=== PATIENT | female | born 1995 | race Caucasian/White ===

== ENCOUNTER → 2018-11-13 | Emergency (ER) | payer SELFPAY ==
[~2018-11-13] VITALS: Ht 170.2 cm; Wt 59.0 kg
[~2018-11-13] MED LIST: IOHEXOL 300 MG/ML 100ML BOTTLE IJ ONE
[2018-11-13 21:57] VITALS: BP 106/63
[2018-11-13 22:41] LABS: Basophils # (auto) 0.1 uL; Basophils % (auto) 1.5 % (0.0-2.0); Eosinophils # (auto) 0.1 uL; Eosinophils % (auto) 1.5 % (0.0-7.0); Hematocrit 41.4 % (36.0-46.0); Hemoglobin 13.9 g/dL (12.2-16.2); Lymphocytes # (auto) 1.9 uL; Lymphocytes % (auto) 29.7 % (10.0-50.0); Mean Corpuscular Hemoglobin 30.6 pg (28.0-32.0); Mean Corpuscular Hgb Conc. 33.6 g/dL (32.0-36.0); Mean Corpuscular Volume 91.2 fL (80.0-100.0); Monocytes # (auto) 0.5 uL; Monocytes % (auto) 7.4 % (0.0-12.0); Neutrophils # (auto) 3.9 uL; Neutrophils % (auto) 59.9 % (37.0-80.0); Nucleated Red Blood Cells % 0.1 %; Platelet Count (auto) 230 10^3/uL (140-450); Red Blood Cells 4.54 10^6/uL (4.0-5.20); Red Cell Distribution Width 13.2 % (11.8-14.3); White Blood Cell 6.4 10^3/uL (4.4-10.8)
[2018-11-13 22:59] LABS: Albumin 4.1 g/dL (3.4-5.0); BUN/Creatinine Ratio 12.8; Potassium 4.2 mmol/L (3.5-5.1)
[2018-11-13 23:02] LABS: Bilirubin, Total 0.2 mg/dL (0.2-1.0); Total Protein 7.5 g/dL (6.4-8.2)
== END | disposition left against medical advice (07) ==
LOC: ER 21:23
DX: R10.31 Right lower quadrant pain (principal); Z53.21 Procedure and treatment not carried out due to patient leaving prior to being seen by health care provider
CPT/HCPCS: 36415; 74177; 80053; 84702; 85025; 99281; Q9967

== ENCOUNTER 2018-12-19 19:17 | Emergency (ER) | payer MEDICAID ==
[~2018-12-19] VITALS: Ht 170.2 cm; Wt 54.4 kg
[2018-12-19 19:35] VITALS: BP 110/64
[2018-12-19] MEDS ORDERED: DexAMETHasone SOD PHOS 10MG/1ML VIAL INJ IM ONE (21:00)
== END 2018-12-19 22:00 | disposition home or self-care (01) ==
LOC: ER 19:17
DX: R21 Rash and other nonspecific skin eruption (principal)
CPT/HCPCS: 96372; 99283; J1100

== ENCOUNTER 2019-12-21 01:13 | Observation (INO) | payer MEDICAID ==
[~2019-12-21] VITALS: Ht 167.6 cm; Wt 54.4 kg
== END 2019-12-21 02:06 | disposition home or self-care (01) | DRG 566 ==
LOC: LDRP 01:13
PROVIDERS: ADMIT Obstetrics & Gynecology; ATTEND Obstetrics & Gynecology
DX: O26.892 Other specified pregnancy related conditions, second trimester (principal); Z3A.20 20 weeks gestation of pregnancy
CPT/HCPCS: 59025; 81002; G0378

== ENCOUNTER 2020-03-11 18:39 | Observation (INO) | payer MEDICAID ==
[~2020-03-11] VITALS: Ht 160 cm; Wt 86.2 kg
== END 2020-03-11 20:03 | disposition home or self-care (01) | DRG 566 ==
LOC: LDRP 18:39
PROVIDERS: ADMIT Specialist; ATTEND Specialist
DX: O9A.213 Injury, poisoning and certain other consequences of external causes complicating pregnancy, third trimester (principal); R10.30 Lower abdominal pain, unspecified; Z3A.32 32 weeks gestation of pregnancy; V49.59XA Passenger injured in collision with other motor vehicles in traffic accident, initial encounter; Y93.89 Activity, other specified; Y92.89 Other specified places as the place of occurrence of the external cause; Y99.8 Other external cause status
CPT/HCPCS: 59025; 76815; 76817; 81002; G0378

== ENCOUNTER 2020-03-29 14:08 | Observation (INO) | payer MEDICAID | END 2020-03-29 14:35 | disposition left against medical advice (07) | DRG 566 | LOC: LDRP 14:08 | PROVIDERS: ADMIT Specialist; ATTEND Specialist | DX: O42.913 Preterm premature rupture of membranes, unspecified as to length of time between rupture and onset of labor, third trimester (principal); Z3A.33 33 weeks gestation of pregnancy | CPT/HCPCS: G0378 ==

== ENCOUNTER 2020-03-29 20:46 | Observation (INO) | payer MEDICAID | END 2020-03-29 23:45 | disposition home or self-care (01) | DRG 566 | LOC: LDRP 20:46 | PROVIDERS: ADMIT Specialist; ATTEND Specialist | DX: O42.913 Preterm premature rupture of membranes, unspecified as to length of time between rupture and onset of labor, third trimester (principal); O26.893 Other specified pregnancy related conditions, third trimester; R51 Headache; R42 Dizziness and giddiness; Z3A.33 33 weeks gestation of pregnancy | CPT/HCPCS: 59025; 76815; 81002; 84112; 87210; G0378; Q0114; 76817 ==

== ENCOUNTER → 2020-04-18 | Outpatient (CLI) | payer MEDICAID ==
[~2020-04-18] MED LIST changes: -IOHEXOL 300 MG/ML 100ML BOTTLE IJ ONE; +PREN-96 PO
[2020-04-18 11:59] LABS: Basophils # (auto) 0 10 ^3/uL (0-0.2); Nucleated Red Blood Cells % 0.1 %
[2020-04-18 12:00] LABS: Basophils % (auto) 0.4 % (0.0-2.0); Eosinophils # (auto) 0 10 ^3/uL (0-0.8); Eosinophils % (auto) 0.5 % (0.0-7.0); Hematocrit 32.1 % (36.0-46.0); Lymphocytes % (auto) 12.4 % (10.0-50.0); Mean Corpuscular Hgb Conc. 31.3 g/dL (32.0-36.0); Mean Corpuscular Volume 79.9 fL (80.0-100.0); Monocytes # (auto) 0.5 10 ^3/uL (0-1.3); Monocytes % (auto) 6.5 % (0.0-12.0); Neutrophils # (auto) 6.5 10 ^3/uL (1.6-8.6); Neutrophils % (auto) 80.2 % (37.0-80.0); Platelet Count (auto) 293 10^3/uL (140-450); Red Blood Cells 4.02 10^6/uL (4.0-5.20); Red Cell Distribution Width 14.6 % (11.8-14.3); White Blood Cell 8.1 10^3/uL (4.4-10.8)
[2020-04-19 05:11] LABS: RPR Non Reactive (Non Reactive)
== END | disposition home or self-care (01) ==
LOC: LAB 11:41
PROVIDERS: ATTEND Specialist
DX: Z34.83 Encounter for supervision of other normal pregnancy, third trimester (principal); Z3A.36 36 weeks gestation of pregnancy
CPT/HCPCS: 36415; 84112; 85025; 86592; 87081

== ENCOUNTER 2020-04-26 10:32 | Observation (INO) | payer MEDICAID ==
[2020-04-26] MEDS ORDERED: PREN-96 PO (11:30)
== END 2020-04-26 12:09 | disposition home or self-care (01) ==
LOC: OB 10:32 → LDRP 11:15
PROVIDERS: ADMIT Obstetrics & Gynecology; ATTEND Obstetrics & Gynecology
DX: O99.89 Other specified diseases and conditions complicating pregnancy, childbirth and the puerperium (principal); N13.30 Unspecified hydronephrosis; Z3A.37 37 weeks gestation of pregnancy
CPT/HCPCS: 59025; 76818; 81002; G0378

== ENCOUNTER 2020-04-27 10:19 | Observation (INO) | payer MEDICAID ==
[2020-04-28 00:52] LABS: Basophils # (auto) 0 10 ^3/uL (0-0.2); Eosinophils # (auto) 0.1 10 ^3/uL (0-0.8); Neutrophils # (auto) 6.9 10 ^3/uL (1.6-8.6); Nucleated Red Blood Cells % 0.1 %
[2020-04-28 00:54] LABS: Basophils % (auto) 0.4 % (0.0-2.0); Eosinophils % (auto) 0.6 % (0.0-7.0); Hematocrit 27.7 % (36.0-46.0); Lymphocytes # (auto) 1.5 10 ^3/uL (0.4-5.4); Lymphocytes % (auto) 15.9 % (10.0-50.0); Mean Corpuscular Hemoglobin 25.4 pg (28.0-32.0); Mean Corpuscular Hgb Conc. 32.5 g/dL (32.0-36.0); Monocytes # (auto) 0.7 10 ^3/uL (0-1.3); Monocytes % (auto) 7.6 % (0.0-12.0); Neutrophils % (auto) 75.5 % (37.0-80.0); Platelet Count (auto) 297 10^3/uL (140-450); Red Blood Cells 3.55 10^6/uL (4.0-5.20); White Blood Cell 9.1 10^3/uL (4.4-10.8)
[2020-04-28 01:05] LABS: Urine Bacteria NONE SEEN /hpf (None Seen); Urine Blood Negative /uL (Negative); Urine Specific Gravity 1.012 (1.001-1.035); Urine WBC 5 /hpf (0 - 5)
[2020-04-28 01:18] LABS: Albumin 2.4 g/dL (3.4-5.0); BUN/Creatinine Ratio 13.3; Calcium 8.1 mg/dL (8.5-10.1); Potassium 3.6 mmol/L (3.5-5.1); Uric Acid 4.1 mg/dL (2.6-6.0)
[2020-04-28 01:21] LABS: Bilirubin, Total 0.2 mg/dL (0.2-1.0); Total Protein 6.1 g/dL (6.4-8.2)
[2020-04-28 02:03] LABS: INR 0.91 (0.9-1.15); Partial Thromboplastin Time 23.6 sec (23.0-31.2)
== END 2020-04-28 01:40 | disposition home or self-care (01) ==
LOC: LDRP 10:19
PROVIDERS: ADMIT Specialist; ATTEND Specialist
DX: O36.8130 Decreased fetal movements, third trimester, not applicable or unspecified (principal); O26.893 Other specified pregnancy related conditions, third trimester; R10.11 Right upper quadrant pain; O62.9 Abnormality of forces of labor, unspecified; Z3A.38 38 weeks gestation of pregnancy
CPT/HCPCS: 36415; 59025; 76705; 80053; 81001; 81002; 84550; 85025; 85379; 85610; 85730; G0378

== ENCOUNTER 2020-05-01 11:01 | Observation (INO) | payer MEDICAID ==
[2020-05-01 13:19] LABS: Urine Bacteria MOD /hpf (None Seen); Urine Blood Negative /uL (Negative); Urine WBC 1 /hpf (0 - 5)
== END 2020-05-01 14:05 | disposition home or self-care (01) ==
LOC: LDRP 11:01
PROVIDERS: ADMIT Specialist; ATTEND Specialist
DX: O99.89 Other specified diseases and conditions complicating pregnancy, childbirth and the puerperium (principal); N13.30 Unspecified hydronephrosis; Z3A.38 38 weeks gestation of pregnancy
CPT/HCPCS: 59025; 76818; 81001; 81002; G0378

== ENCOUNTER 2020-05-02 13:15 | Observation (INO) | payer MEDICAID | END 2020-05-02 14:10 | disposition home or self-care (01) | LOC: LDRP 13:15 | PROVIDERS: ADMIT Specialist; ATTEND Specialist | DX: O36.8330 Maternal care for abnormalities of the fetal heart rate or rhythm, third trimester, not applicable or unspecified (principal); Z3A.38 38 weeks gestation of pregnancy | CPT/HCPCS: 59025; 81002; G0378 ==

== ENCOUNTER 2020-05-03 03:56 | Inpatient (IN) | payer MEDICAID ==
[~2020-05-03] VITALS: Ht 170.2 cm; Wt 75.7 kg
[2020-05-03 07:19] LABS: Cannabinoid Screen, Urine POSITIVE (NEGATIVE)
[2020-05-03] MEDS ORDERED: LACTATED RINGER'S 1,000 ML IV ONE ×2 (07:24→07:30)
[2020-05-03 07:27] LABS: Alcohol, Urine < 3.0 mg/dL (0-10); Amphetamine Screen, Urine NEGATIVE (NEGATIVE); Barbiturate Scree,Urine NEGATIVE (NEGATIVE); Benzodiazephine Screen, Urine NEGATIVE (NEGATIVE); Cocaine Screen, Urine NEGATIVE (NEGATIVE); Opiate Scree,Urine NEGATIVE (NEGATIVE); Phencyclidine Screen, Urine NEGATIVE (NEGATIVE)
[2020-05-03] MEDS ORDERED: LACTATED RINGER'S 1,000 ML IV SCH (08:43)
[2020-05-03] MEDS ORDERED: LACT. RINGERS/OXYTOCIN 20UNITS 1,000 ML IV SCH (08:43)
[2020-05-03] MEDS ORDERED: LIDOCAINE 2%HCL (LOCAL ANESTH.) INJ 20ML MDV ID ONE (08:45)
[2020-05-03] MEDS ORDERED: PENICILLIN G POT 5MIL/D5 50ML 50 ML IV ONE (08:45)
[2020-05-03] MEDS ORDERED: WITCH HAZEL-GLYCERIN PAD TOP PRN (08:45)
[2020-05-03] MEDS ORDERED: DERMOPLAST 60ML BOTTLE TOP PRN (08:45)
[2020-05-03] MEDS ORDERED: BUTORPHANOL TARTRATE 2 MG/1 ML VIAL IV PRN (08:45)
[2020-05-03] MEDS ORDERED: PHISODERM TOP SOLN 240ML BTL TOP PRN (08:45)
[2020-05-03 09:38] LABS: Urine Bacteria FEW /hpf (None Seen); Urine Blood 1+ /uL (Negative); Urine Mucus FEW (None Seen); Urine Specific Gravity 1.019 (1.001-1.035); Urine WBC 67 /hpf (0 - 5); Urine WBC Clumps PRESENT /hpf (None Seen)
[2020-05-03] MEDS: PENICILLIN G POTASSIUM 2,500,000 UNITS in D5W 5% 50 ML IV SCH ×2 (09:40→13:27)
[2020-05-03 09:45] LABS: Basophils # (auto) 0 10 ^3/uL (0-0.2); Eosinophils # (auto) 0 10 ^3/uL (0-0.8); Lymphocytes # (auto) 0.8 10 ^3/uL (0.4-5.4); Mean Corpuscular Volume 77.4 fL (80.0-100.0)
[2020-05-03] MEDS ORDERED: PROMETHAZINE HCL 25 MG/ML 1ML IV PRN (09:45)
[2020-05-03 09:46] LABS: Albumin 2.8 g/dL (3.4-5.0); BUN/Creatinine Ratio 12.3; Calcium 8.5 mg/dL (8.5-10.1); INR 0.9 (0.9-1.15); Partial Thromboplastin Time 23.9 sec (23.0-31.2); Potassium 3.7 mmol/L (3.5-5.1)
[2020-05-03 09:47] LABS: Eosinophils % (auto) 0.1 % (0.0-7.0); Hematocrit 32.4 % (36.0-46.0); Hemoglobin 10.1 g/dL (12.2-16.2); Lymphocytes % (auto) 8.5 % (10.0-50.0); Mean Corpuscular Hemoglobin 24.1 pg (28.0-32.0); Mean Corpuscular Hgb Conc. 31.2 g/dL (32.0-36.0); Monocytes # (auto) 0.4 10 ^3/uL (0-1.3); Monocytes % (auto) 3.9 % (0.0-12.0); Neutrophils # (auto) 8.3 10 ^3/uL (1.6-8.6); Neutrophils % (auto) 87.5 % (37.0-80.0); Platelet Count (auto) 332 10^3/uL (140-450); Red Blood Cells 4.19 10^6/uL (4.0-5.20); Red Cell Distribution Width 15.4 % (11.8-14.3); White Blood Cell 9.5 10^3/uL (4.4-10.8)
[2020-05-03 09:58] LABS: Bilirubin, Total 0.3 mg/dL (0.2-1.0); Total Protein 7.1 g/dL (6.4-8.2)
[2020-05-03] MEDS ORDERED: LACTATED RINGER'S 500 ML IV ONE (12:17)
[2020-05-03] MEDS ORDERED: ROPIVACAINE HCL 100 ML EPI SCH ×2 (12:30→13:30)
[2020-05-03] MEDS ORDERED: NALOXONE HCL 0.4 MG/ML VIAL IV ONE ×2 (12:30→13:30)
[2020-05-03] MEDS ORDERED: fentaNYL 200mCg/100ml W ROPIVA 100 ML EPI SCH (12:30)
[2020-05-03] MEDS ORDERED: ePHEDrine SULFATE 50 MG/ML AMP IV ONE ×2 (12:30→13:30)
[2020-05-03] MEDS ORDERED: LIDOCAINE HCL 2 %PF INJ 10ML AMP IJ ONE (12:30)
[2020-05-03] MEDS ORDERED: fentaNYL CITRATE 100 MCG/2 ML VL IV ONE (12:30)
[2020-05-03] MEDS ORDERED: ONDANSETRON HCL 4 MG/2 ML VIAL IV ONE (13:45)
[2020-05-03] MEDS ORDERED: LACT. RINGERS/OXYTOCIN 20UNITS 500 ML IV ONE (18:03)
--- NOTE | 2020-05-03 18:30 | NUR ---
Teaching: Reviewed information in [facility] booklet with patient. Discussed benefits of and risks associated with not , however UDS is positive for THC on mother awaiting void from to test urine. Encouraged mother to bottle feed while in hospital. Mother refused and wishes to breastfeed. Discussed different positions, proper latch, feeding cues, and baby-led . Provided information of medication side effects related to . All questions and concerns addressed at this time. Patient verbalized understanding of information.
--- NOTE | 2020-05-03 19:10 | NUR ---
Ambulation: Patient OOB with standby assistance by RN. Epidural Catheter removed with blue tip intact, patient tolerates well, and simple bandage placed over site Patient ambulated to bathroom with steady gait. Patient able to void 400ml without difficulty. [facility] teaching provided with returned demonstration by patient. Clean gown provided and bed linen changed. Patient ambulated back to bed with steady gait and no distress noted.
[2020-05-03] MEDS: IBUPROFEN 600 MG TAB PO PRN ×2 (19:39→22:47)
[2020-05-03 23:00] VITALS: BP 108/55
[2020-05-04 03:00] VITALS: BP 122/66
[2020-05-04] MEDS: IBUPROFEN 600 MG TAB PO PRN ×4 (04:30→15:02)
--- NOTE | 2020-05-04 06:15 | NUR ---
Report received from ROHINI Corado. Assumed care of pt. Addendum: 05/04/20 at 0813 by Miranda Ramirez RN Amended: Links added.
[2020-05-04 06:53] VITALS: BP 104/56
[2020-05-04 08:06] LABS: RPR Non Reactive (Non Reactive)
--- NOTE | 2020-05-04 09:51 | NUR ---
Assessment Patient is a 25-year old female who is alert and oriented. Social Service consult regarding THC positive. Baby drug screen tested positive. Patient stated she has Bipolar disorder and she smoke THC every day to treat her Bipolar disorder. Patient stated she stop consuming THC at 8 months of her because she did not want her baby to be positive. Baby father Tee was at bedside when speaking to patient. Patient resides with baby father Tee and will assistance with baby upon discharge. Patient has all supplies as well as car seat for baby and will be bottle fed. Patient has medical insurance for herself and baby and will be following up with provider appt post discharge. Pt has transportation home upon discharge. Due to baby being positive for THC, CPS will be contact. Spoke to Rigo with CPS. CPS case is [id number]. Informed EDILSON Jean.
[2020-05-04 10:35] VITALS: BP 102/63
[2020-05-04 14:15] VITALS: BP 105/63
--- NOTE | 2020-05-04 15:14 | NUR ---
Spoke with Corina from [employer], pt is cleared for discharge and CPS will follow-up with patient.
--- NOTE | 2020-05-04 18:10 | NUR ---
Report given to Efren NOVA RN on stable pt. Relinquished care. Addendum: 05/04/20 at 1820 by Miranda Ramirez RN Amended: Links added.
[2020-05-04 18:30] VITALS: BP 114/63
--- NOTE | 2020-05-04 19:00 | NUR ---
Discharge: Discharge instructions given as ordered. Pt encouraged to follow up with [employer] as instructed. All questions and concerns addressed. Patient verbalized understanding. Medication reconciliation completed and copy given to patient. All required/requested vaccines given and copies of vaccinations given to patient. Patient encouraged to prepare to depart unit.
--- NOTE | 2020-05-04 19:20 | NUR ---
Discharge: Patient taken to vehicle via wheelchair with all personal belongings, accompanied by staff and family member. No distress noted at time of departure, no adverse changes in status since initial assessment.
== END 2020-05-04 19:20 | disposition home or self-care (01) | DRG 560 ==
LOC: LDRP 03:56 → OBSVTOIN 08:17 → LDRP 08:33
PROVIDERS: ADMIT Specialist; ATTEND Specialist
PROC: 10E0XZZ Delivery of Products of Conception, External Approach (ICD-10-PCS; principal; 2020-05-03)
PROC: 3E0R3BZ Introduction of Anesthetic Agent into Spinal Canal, Percutaneous Approach (ICD-10-PCS; 2020-05-03)
PROC: 00HU33Z Insertion of Infusion Device into Spinal Canal, Percutaneous Approach (ICD-10-PCS; 2020-05-03)
PROC: 0KQM0ZZ Repair Perineum Muscle, Open Approach (ICD-10-PCS; 2020-05-03)
DX: O99.324 Drug use complicating childbirth (principal); O71.4 Obstetric high vaginal laceration alone; O99.62 Diseases of the digestive system complicating childbirth; K52.9 Noninfective gastroenteritis and colitis, unspecified; Z20.828 Contact with and (suspected) exposure to other viral communicable diseases; F12.90 Cannabis use, unspecified, uncomplicated; Z37.0 Single live birth; Z3A.38 38 weeks gestation of pregnancy; O99.824 Streptococcus B carrier state complicating childbirth
CPT/HCPCS: 36415; 59025; 59409; 80053; 80307; 81001; 81002; 84112; 85025; 85610; 85730; 86592; 86850; 86900; 86901; 87426; 96360; 96361; 96365; 96366; 96375; G0378; J2405; J2540; J2590; J7060

== ENCOUNTER 2021-10-26 08:00 | Emergency (ER) | payer MEDICAID, OTHER ==
[~2021-10-26] VITALS: Ht 167.6 cm; Wt 63.5 kg
[2021-10-26] MEDS ORDERED: ONDANSETRON HCL 4 MG/2 ML VIAL IV ONE (08:15)
[2021-10-26] MEDS ORDERED: SODIUM CHLORIDE 0.9% 1,000 ML IV ONE ×2 (08:15→09:30)
[2021-10-26 08:23] VITALS: BP 122/60
[2021-10-26 09:17] LABS: Basophils # (auto) 0 10 ^3/uL (0-0.2); Basophils % (auto) 0.4 % (0.0-2.0); Eosinophils # (auto) 0 10 ^3/uL (0-0.8); Eosinophils % (auto) 0.9 % (0.0-7.0); Hematocrit 37.2 % (36.0-46.0); Hemoglobin 12.2 g/dL (12.2-16.2); Mean Corpuscular Hemoglobin 28.2 pg (28.0-32.0); Mean Corpuscular Hgb Conc. 32.7 g/dL (32.0-36.0); Mean Corpuscular Volume 86.1 fL (80.0-100.0); Monocytes # (auto) 0.3 10 ^3/uL (0-1.3); Monocytes % (auto) 7.7 % (0.0-12.0); Red Blood Cells 4.32 10^6/uL (4.0-5.20); Red Cell Distribution Width 13.7 % (11.8-14.3); White Blood Cell 4.4 10^3/uL (4.4-10.8)
[2021-10-26 09:32] LABS: BUN/Creatinine Ratio 14.3; Calcium 8.5 mg/dL (8.5-10.1); Potassium 3.8 mmol/L (3.5-5.1)
[2021-10-26] MEDS ORDERED: PROMETHAZINE HCL 25 MG/ML 1ML IV ONE (09:45)
[2021-10-26] MEDS ORDERED: cefTRIAXone 1GM/50ML D5W 50 ML IV ONE (10:00)
[2021-10-26] MEDS ORDERED: PROM25TA5 PO (10:17)
== END 2021-10-26 10:44 | disposition home or self-care (01) ==
LOC: ER 08:00
DX: O21.8 Other vomiting complicating pregnancy (principal); Z3A.10 10 weeks gestation of pregnancy
CPT/HCPCS: 36415; 80048; 81002; 81025; 84702; 85025; 96361; 96365; 96375; 99284; J0696; J2405; J2550; J7030

== ENCOUNTER → 2022-01-22 | Outpatient (CLI) | payer MEDICAID ==
[~2022-01-22] MED LIST changes: +PROM25TA5 PO
[2022-01-22 14:36] LABS: Alcohol, Urine < 3.0 mg/dL (0-10); Amphetamine Screen, Urine NEGATIVE (NEGATIVE); Barbiturate Scree,Urine NEGATIVE (NEGATIVE); Benzodiazephine Screen, Urine NEGATIVE (NEGATIVE); Cannabinoid Screen, Urine POSITIVE (NEGATIVE); Cocaine Screen, Urine NEGATIVE (NEGATIVE); Opiate Scree,Urine NEGATIVE (NEGATIVE); Phencyclidine Screen, Urine NEGATIVE (NEGATIVE)
== END | disposition home or self-care (01) ==
LOC: LAB 13:54
PROVIDERS: ATTEND Obstetrics & Gynecology
DX: Z34.00 Encounter for supervision of normal first pregnancy, unspecified trimester (principal); Z3A.00 Weeks of gestation of pregnancy not specified
CPT/HCPCS: 80307

== ENCOUNTER 2022-03-04 19:00 | Observation (INO) | payer MEDICAID ==
[2022-03-04 20:26] LABS: Basophils # (auto) 0 10 ^3/uL (0-0.2); Eosinophils # (auto) 0 10 ^3/uL (0-0.8); Lymphocytes # (auto) 0.4 10 ^3/uL (0.4-5.4); Monocytes # (auto) 0.4 10 ^3/uL (0-1.3); Red Blood Cells 3.49 10^6/uL (4.0-5.20); White Blood Cell 5.6 10^3/uL (4.4-10.8)
[2022-03-04 20:28] LABS: Basophils % (auto) 0.4 % (0.0-2.0); Eosinophils % (auto) 0.3 % (0.0-7.0); Hematocrit 28.7 % (36.0-46.0); Hemoglobin 9.2 g/dL (12.2-16.2); Mean Corpuscular Hemoglobin 26.5 pg (28.0-32.0); Mean Corpuscular Hgb Conc. 32.2 g/dL (32.0-36.0); Mean Corpuscular Volume 82.2 fL (80.0-100.0); Monocytes % (auto) 7.7 % (0.0-12.0); Neutrophils # (auto) 4.7 10 ^3/uL (1.6-8.6); Neutrophils % (auto) 84.6 % (37.0-80.0); Red Cell Distribution Width 13.7 % (11.8-14.3)
[2022-03-04 20:31] LABS: Urine Bacteria NONE SEEN /hpf (None Seen); Urine Blood Negative /uL (Negative); Urine Mucus FEW (None Seen); Urine Specific Gravity 1.027 (1.001-1.035); Urine Sperm PRESENT /hpf (None Seen); Urine WBC 26 /hpf (0 - 5)
== END 2022-03-04 21:34 | disposition home or self-care (01) ==
LOC: LDRP 19:00
PROVIDERS: ADMIT Obstetrics & Gynecology Obstetrics; ATTEND Obstetrics & Gynecology Obstetrics
DX: O26.892 Other specified pregnancy related conditions, second trimester (principal); R10.2 Pelvic and perineal pain; Z3A.26 26 weeks gestation of pregnancy
CPT/HCPCS: 36415; 59025; 76705; 76815; 81001; 81002; 85025; 94760; G0378

== ENCOUNTER 2022-04-11 19:50 | Observation (INO) | payer MEDICAID ==
[~2022-04-11] VITALS: Ht 157.5 cm; Wt 81.6 kg
[2022-04-11] MEDS ORDERED: LACTATED RINGER'S 1,000 ML IV ONE (20:15)
[2022-04-11] MEDS ORDERED: LACTATED RINGER'S 1,000 ML IV SCH (20:15)
[2022-04-11] MEDS: TERBUTALINE SULFATE 1 MG/ML 1ML VIAL SC SCH ×2 (21:00→22:18)
[2022-04-11 21:18] LABS: Urine Bacteria NONE SEEN /hpf (None Seen); Urine Blood Negative /uL (Negative); Urine Specific Gravity 1.003 (1.001-1.035); Urine WBC <1 /hpf (0 - 5)
[2022-04-11] MEDS ORDERED: ONDANSETRON HCL 4 MG/2 ML VIAL IV PRN (21:45)
[2022-04-11] MEDS: MORPHINE SULFATE INJ 2 MG/ml SYRG IV PRN (22:17)
[2022-04-11 22:38] LABS: Basophils # (auto) 0 10 ^3/uL (0-0.2); Basophils % (auto) 0.5 % (0.0-2.0); Eosinophils # (auto) 0 10 ^3/uL (0-0.8); Hematocrit 26.5 % (36.0-46.0); Hemoglobin 8.3 g/dL (12.2-16.2); Monocytes # (auto) 0.4 10 ^3/uL (0-1.3); Monocytes % (auto) 5.8 % (0.0-12.0); Nucleated Red Blood Cells % 0.1 %; White Blood Cell 7.3 10^3/uL (4.4-10.8)
[2022-04-11 22:40] LABS: Eosinophils % (auto) 0.5 % (0.0-7.0); Lymphocytes # (auto) 1.3 10 ^3/uL (0.4-5.4); Lymphocytes % (auto) 18.3 % (10.0-50.0); Mean Corpuscular Hemoglobin 24.2 pg (28.0-32.0); Mean Corpuscular Hgb Conc. 31.3 g/dL (32.0-36.0); Mean Corpuscular Volume 77.3 fL (80.0-100.0); Neutrophils # (auto) 5.5 10 ^3/uL (1.6-8.6); Neutrophils % (auto) 74.9 % (37.0-80.0); Red Blood Cells 3.42 10^6/uL (4.0-5.20); Red Cell Distribution Width 15.2 % (11.8-14.3)
[2022-04-12 00:15] VITALS: BP 115/55
[2022-04-12] MEDS: MORPHINE SULFATE INJ 2 MG/ml SYRG IV PRN (00:15)
[2022-04-12] MEDS ORDERED: metroNIDAZOLE 500 MG TAB PO SCH (01:00)
[2022-04-12] MEDS ORDERED: METR500T PO (03:04)
== END 2022-04-12 03:23 | disposition home or self-care (01) ==
LOC: LDRP 19:50
PROVIDERS: ADMIT Obstetrics & Gynecology; ATTEND Obstetrics & Gynecology
DX: O99.891 Other specified diseases and conditions complicating pregnancy (principal); M54.9 Dorsalgia, unspecified; O62.9 Abnormality of forces of labor, unspecified; O26.893 Other specified pregnancy related conditions, third trimester; R10.2 Pelvic and perineal pain; Z3A.31 31 weeks gestation of pregnancy
CPT/HCPCS: 36415; 59025; 76775; 76815; 81001; 81002; 85025; 87210; 94762; 96361; 96372; 96374; 96375; 96376; G0378; J2270; J2405; J3105; 96360

== ENCOUNTER 2022-04-15 21:47 | Observation (INO) | payer MEDICAID ==
[~2022-04-15 21:47] MED LIST changes: +METR500T PO
[2022-04-16] MEDS ORDERED: NIF10C PO (11:32)
== END 2022-04-15 22:15 | disposition left against medical advice (07) ==
LOC: LDRP 21:47
PROVIDERS: ADMIT Obstetrics & Gynecology Obstetrics; ATTEND Obstetrics & Gynecology Obstetrics
DX: O62.9 Abnormality of forces of labor, unspecified (principal); Z3A.32 32 weeks gestation of pregnancy

== ENCOUNTER 2022-04-16 09:48 | Observation (INO) | payer MEDICAID ==
[2022-04-16] MEDS ORDERED: BETAMETHASONE ACET (30mg/5ml) 5ml Vial 6mg/ml IM ONE (10:45)
[2022-04-16] MEDS ORDERED: NIF10C PO ×2 (11:32)
== END 2022-04-16 11:39 | disposition home or self-care (01) ==
LOC: LDRP 09:48 → UNDOADMOB 09:48 → LDRP 10:30 → UNDODISOB 11:39
PROVIDERS: ADMIT Obstetrics & Gynecology; ATTEND Obstetrics & Gynecology
DX: O60.03 Preterm labor without delivery, third trimester (principal); Z3A.32 32 weeks gestation of pregnancy
CPT/HCPCS: 59025; 81002; 94760; 96372; G0378; J0702

== ENCOUNTER 2022-04-16 21:49 | Observation (INO) | payer MEDICAID ==
[~2022-04-16] VITALS: Ht 170.2 cm; Wt 70.3 kg
[~2022-04-16 21:49] MED LIST changes: +NIF10C PO
[2022-04-16] MEDS ORDERED: LACTATED RINGER'S 1,000 ML IV ONE (22:15)
[2022-04-16] MEDS ORDERED: ceFAZolin 2 GM in D5W 5% 100 ML IV ONE (22:15)
[2022-04-16] MEDS ORDERED: LACTATED RINGER'S 1,000 ML IV SCH (22:15)
== END 2022-04-16 23:34 | disposition left against medical advice (07) ==
LOC: LDRP 21:49
PROVIDERS: ADMIT Obstetrics & Gynecology; ATTEND Obstetrics & Gynecology
DX: O62.9 Abnormality of forces of labor, unspecified (principal); Z3A.32 32 weeks gestation of pregnancy
CPT/HCPCS: 59025; 81002; 96360; G0378; J0690; J7030; J7060

== ENCOUNTER 2022-04-17 11:28 | Observation (INO) | payer MEDICAID ==
[~2022-04-17] VITALS: Ht 170.2 cm; Wt 70.3 kg
[2022-04-17] MEDS ORDERED: BETAMETHASONE ACET (30mg/5ml) 5ml Vial 6mg/ml IM ONE (12:00)
== END 2022-04-17 12:30 | disposition home or self-care (01) ==
LOC: LDRP 11:28 → UNDOADMOB 11:28 → LDRP 11:50 → UNDODISOB 12:30
PROVIDERS: ADMIT Obstetrics & Gynecology; ATTEND Obstetrics & Gynecology
DX: O60.03 Preterm labor without delivery, third trimester (principal); O26.893 Other specified pregnancy related conditions, third trimester; R10.9 Unspecified abdominal pain; Z3A.32 32 weeks gestation of pregnancy
CPT/HCPCS: 59025; 96372; G0378

== ENCOUNTER 2022-04-23 16:18 | Observation (INO) | payer MEDICAID ==
[~2022-04-23] VITALS: Ht 170.2 cm; Wt 71.7 kg
[2022-04-23] MEDS ORDERED: ACETAMINOPHEN 325 MG TAB PO ONE (17:00)
[2022-04-23 17:28] LABS: Amphetamine Screen, Urine NEGATIVE (NEGATIVE); Barbiturate Scree,Urine NEGATIVE (NEGATIVE); Benzodiazephine Screen, Urine NEGATIVE (NEGATIVE); Cannabinoid Screen, Urine POSITIVE (NEGATIVE); Cocaine Screen, Urine NEGATIVE (NEGATIVE); Phencyclidine Screen, Urine NEGATIVE (NEGATIVE)
[2022-04-23 17:36] LABS: Opiate Scree,Urine NEGATIVE (NEGATIVE)
== END 2022-04-23 19:33 | disposition home or self-care (01) ==
LOC: LDRP 16:18 → UNDOADMOB 16:18 → LDRP 16:31
PROVIDERS: ADMIT Obstetrics & Gynecology; ATTEND Obstetrics & Gynecology
DX: O26.893 Other specified pregnancy related conditions, third trimester (principal); R10.10 Upper abdominal pain, unspecified; R51.9 Headache, unspecified; Z3A.33 33 weeks gestation of pregnancy; Z79.899 Other long term (current) drug therapy; V89.2XXA Person injured in unspecified motor-vehicle accident, traffic, initial encounter; Y93.89 Activity, other specified; Y92.89 Other specified places as the place of occurrence of the external cause; Y99.8 Other external cause status
CPT/HCPCS: 59025; 76815; 80307; 81002; 94760; G0378

== ENCOUNTER 2022-05-14 17:09 | Observation (INO) | payer MEDICAID ==
[~2022-05-14] VITALS: Ht 170.2 cm; Wt 73.9 kg
== END 2022-05-14 19:52 | disposition home or self-care (01) ==
LOC: LDRP 17:09
PROVIDERS: ADMIT Obstetrics & Gynecology; ATTEND Obstetrics & Gynecology
DX: O62.9 Abnormality of forces of labor, unspecified (principal); O42.913 Preterm premature rupture of membranes, unspecified as to length of time between rupture and onset of labor, third trimester; O99.891 Other specified diseases and conditions complicating pregnancy; M54.9 Dorsalgia, unspecified; Z3A.36 36 weeks gestation of pregnancy
CPT/HCPCS: 59025; 76805; 76817; 76818; 81002; 94760; G0378

== ENCOUNTER 2022-05-23 20:18 | Observation (INO) | payer MEDICAID ==
[~2022-05-23 20:18] MED LIST changes: -METR500T PO; -NIF10C PO
== END 2022-05-23 21:55 | disposition home or self-care (01) ==
LOC: LDRP 20:18 → UNDOADMOB 20:18
PROVIDERS: ADMIT Obstetrics & Gynecology; ATTEND Obstetrics & Gynecology
DX: O62.9 Abnormality of forces of labor, unspecified (principal); O99.891 Other specified diseases and conditions complicating pregnancy; M54.9 Dorsalgia, unspecified; R10.30 Lower abdominal pain, unspecified; Z3A.37 37 weeks gestation of pregnancy
CPT/HCPCS: 59025; 81002; 94760; G0378

== ENCOUNTER 2022-05-29 21:00 | Observation (INO) | payer MEDICAID | END 2022-05-29 22:00 | disposition home or self-care (01) | LOC: LDRP 21:00 | PROVIDERS: ADMIT Obstetrics & Gynecology; ATTEND Obstetrics & Gynecology | DX: O62.9 Abnormality of forces of labor, unspecified (principal); O99.323 Drug use complicating pregnancy, third trimester; F12.90 Cannabis use, unspecified, uncomplicated; Z3A.38 38 weeks gestation of pregnancy; Z53.29 Procedure and treatment not carried out because of patient's decision for other reasons | CPT/HCPCS: 59025; 81002; 84112; G0378; Q0114 ==

== ENCOUNTER 2022-05-30 22:02 | Inpatient (IN) | payer MEDICAID ==
[~2022-05-30] VITALS: Ht 170.2 cm; Wt 73.9 kg
[2022-05-30] MEDS ORDERED: PROMETHAZINE HCL 25 MG/ML 1ML IV ONE (23:30)
[2022-05-30] MEDS: BUTORPHANOL TARTRATE 2 MG/1 ML VIAL IM ONE ×2 (23:30→23:58)
[2022-05-31] VITALS (7 sets, daily range): BP systolic 121–149; BP diastolic 59–73
[2022-05-31] MEDS ORDERED: BUTORPHANOL TARTRATE 2 MG/1 ML VIAL IV ONE
[2022-05-31] MEDS ORDERED: BUTORPHANOL TARTRATE 2 MG/1 ML VIAL IV PRN ×2 (02:00)
[2022-05-31] MEDS ORDERED: WITCH HAZEL-GLYCERIN PAD TOP PRN (02:00)
[2022-05-31] MEDS ORDERED: LIDOCAINE 2%HCL (LOCAL ANESTH.) INJ 10ml MDV IJ PRN (02:00)
[2022-05-31] MEDS ORDERED: PHISODERM TOP SOLN 240ML BTL TOP PRN (02:00)
[2022-05-31] MEDS ORDERED: PROMETHAZINE HCL 25 MG/ML 1ML IV PRN (02:00)
[2022-05-31] MEDS ORDERED: DERMOPLAST 60ML BOTTLE TOP PRN (02:00)
[2022-05-31] MEDS: LACTATED RINGER'S 1,000 ML IV SCH ×2 (02:05→10:43)
[2022-05-31] MEDS ORDERED: PENICILLIN G POT 5MIL/D5 50ML 50 ML IV ONE (02:15)
[2022-05-31 02:17] LABS: Urine Bacteria NONE SEEN /hpf (None Seen); Urine Blood 2+ /uL (Negative); Urine Specific Gravity 1.007 (1.001-1.035); Urine WBC 3 /hpf (0 - 5)
[2022-05-31 02:23] LABS: Alcohol, Urine < 3.0 mg/dL (0-10); Amphetamine Screen, Urine NEGATIVE (NEGATIVE); Barbiturate Scree,Urine NEGATIVE (NEGATIVE); Benzodiazephine Screen, Urine NEGATIVE (NEGATIVE); Cannabinoid Screen, Urine POSITIVE (NEGATIVE); Cocaine Screen, Urine NEGATIVE (NEGATIVE); Phencyclidine Screen, Urine NEGATIVE (NEGATIVE)
[2022-05-31 02:30] LABS: Opiate Scree,Urine NEGATIVE (NEGATIVE)
[2022-05-31 03:33] LABS: Basophils # (auto) 0.1 10 ^3/uL (0-0.2); Eosinophils # (auto) 0 10 ^3/uL (0-0.8); Eosinophils % (auto) 0.4 % (0.0-7.0); Mean Corpuscular Volume 68.2 fL (80.0-100.0); Nucleated Red Blood Cells % 0.1 %
[2022-05-31 03:34] LABS: Basophils % (auto) 1.3 % (0.0-2.0); Hematocrit 23.8 % (36.0-46.0); Hemoglobin 7.4 g/dL (12.2-16.2); Lymphocytes # (auto) 1.1 10 ^3/uL (0.4-5.4); Mean Corpuscular Hemoglobin 21.3 pg (28.0-32.0); Mean Corpuscular Hgb Conc. 31.2 g/dL (32.0-36.0); Monocytes # (auto) 0.5 10 ^3/uL (0-1.3); Monocytes % (auto) 7.1 % (0.0-12.0); Neutrophils # (auto) 5.4 10 ^3/uL (1.6-8.6); Neutrophils % (auto) 75.2 % (37.0-80.0); Red Blood Cells 3.49 10^6/uL (4.0-5.20); Red Cell Distribution Width 17.6 % (11.8-14.3); White Blood Cell 7.1 10^3/uL (4.4-10.8)
[2022-05-31 03:54] LABS: Albumin 2.5 g/dL (3.4-5.0); Calcium 7.8 mg/dL (8.5-10.1); Potassium 3.5 mmol/L (3.5-5.1)
[2022-05-31 03:56] LABS: BUN/Creatinine Ratio 10.7
[2022-05-31 03:59] LABS: Bilirubin, Total 0.4 mg/dL (0.2-1.0)
[2022-05-31 04:17] LABS: INR 0.91 (0.9-1.15); Partial Thromboplastin Time 22.7 sec (24.6-33.4)
[2022-05-31] MEDS: PROMETHAZINE HCL 25 MG/ML 1ML IV PRN ×2 (04:25→10:55)
[2022-05-31] MEDS ORDERED: miSOPROStol 100 mcg TAB PR PRN (06:15)
[2022-05-31] MEDS ORDERED: LIDOCAINE HCL 2 %PF INJ 10ML AMP IJ ONE (06:15)
[2022-05-31] MEDS ORDERED: CARBOPROST TROMETHAMINE 250 MCG/1ML VIAL IM PRN (06:15)
[2022-05-31] MEDS ORDERED: LACT. RINGERS/OXYTOCIN 20UNITS 500 ML IV ONE ×2 (06:15→06:45)
[2022-05-31] MEDS ORDERED: LACT. RINGERS/OXYTOCIN 20UNITS 1,000 ML IV SCH (06:15)
[2022-05-31] MEDS ORDERED: NALOXONE HCL 0.4 MG/ML VIAL IV ONE (06:15)
[2022-05-31] MEDS ORDERED: LACTATED RINGER'S 1,000 ML IV ONE (06:15)
[2022-05-31] MEDS ORDERED: ROPIVACAINE HCL 200 ML EPI SCH (06:15)
[2022-05-31] MEDS ORDERED: miSOPROStol 100 mcg TAB SL PRN (06:15)
[2022-05-31] MEDS ORDERED: LACTATED RINGER'S 500 ML IV ONE (06:15)
[2022-05-31] MEDS ORDERED: LIDOCAINE 1%-Mpf/Epinephrine 1:200,000 IJ ONE (06:15)
[2022-05-31] MEDS ORDERED: fentaNYL CITRATE 100 MCG/2 ML VL IV ONE (06:15)
[2022-05-31] MEDS ORDERED: PENICILLIN G POTASSIUM 2,500,000 UNITS in D5W 5% 50 ML IV SCH (06:15)
[2022-05-31] MEDS ORDERED: METHYLERGONOVINE MALEATE 0.2 MG/ML AMP IM PRN (06:15)
[2022-05-31] MEDS ORDERED: ePHEDrine SULFATE 50 MG/ML AMP IV ONE (06:15)
[2022-05-31] MEDS: PENICILLIN G POTASSIUM 2,500,000 UNITS in D5W 5% 50 ML IV SCH ×2 (07:40→10:49)
[2022-05-31] MEDS ORDERED: ONDANSETRON ODT 4 MG TAB PO PRN (14:15)
[2022-05-31] MEDS: ceFAZolin 1GM/50ML 50 ML IV SCH ×2 (14:31→23:23)
[2022-05-31] MEDS: IBUPROFEN 800 MG TAB PO SCH ×2 (14:31→23:36)
[2022-05-31] MEDS: ACETAMINOPHEN 325 MG TAB PO PRN ×2 (17:24→21:31)
[2022-06-01 03:13] VITALS: BP 125/60
[2022-06-01] MEDS: ACETAMINOPHEN 325 MG TAB PO PRN (04:32)
[2022-06-01 07:03] VITALS: BP 108/68
[2022-06-01 07:06] LABS: RPR Non Reactive (Non Reactive)
[2022-06-01] MEDS: IBUPROFEN 800 MG TAB PO SCH ×2 (08:09→11:59)
[2022-06-01] MEDS ORDERED: FER325T PO (08:53)
[2022-06-01] MEDS ORDERED: DOCU-94 PO (08:53)
[2022-06-01] MEDS ORDERED: IBUP800T26 PO (08:53)
[2022-06-01] MEDS ORDERED: FERROUS SULFATE 325mg EC TAB PO SCH (09:00)
[2022-06-01 10:49] VITALS: BP 115/59
[2022-06-01 15:18] VITALS: BP 114/65
[2022-06-01 16:26] VITALS: BP 114/65
== END 2022-06-01 16:26 | disposition home or self-care (01) | DRG 560 ==
LOC: LDRP 22:02 → OBSVTOIN 05-31 01:08 → LDRP 05-31 02:39
PROVIDERS: ADMIT Obstetrics & Gynecology; ATTEND Obstetrics & Gynecology
PROC: 10E0XZZ Delivery of Products of Conception, External Approach (ICD-10-PCS; principal; 2022-05-31)
PROC: 0HQ9XZZ Repair Perineum Skin, External Approach (ICD-10-PCS; 2022-05-31)
PROC: 3E0R3BZ Introduction of Anesthetic Agent into Spinal Canal, Percutaneous Approach (ICD-10-PCS; 2022-05-31)
PROC: 00HU33Z Insertion of Infusion Device into Spinal Canal, Percutaneous Approach (ICD-10-PCS; 2022-05-31)
PROC: 10907ZC Drainage of Amniotic Fluid, Therapeutic from Products of Conception, Via Natural or Artificial Opening (ICD-10-PCS; 2022-05-31)
DX: O99.324 Drug use complicating childbirth (principal); Z37.0 Single live birth; F12.90 Cannabis use, unspecified, uncomplicated; O70.0 First degree perineal laceration during delivery; O99.02 Anemia complicating childbirth; Z3A.38 38 weeks gestation of pregnancy; Z20.822 Contact with and (suspected) exposure to COVID-19
CPT/HCPCS: 36415; 59025; 59409; 62282; 80053; 80307; 81001; 81002; 85025; 85610; 85730; 86592; 86850; 86900; 86901; 86920; 94760; 96360; 96361; 96372; 96374; 96375; G0378; J0690; J2540; J2590; J7060; Q0162

== ENCOUNTER 2023-05-26 20:45 | Emergency (ER) | payer MEDICAID ==
[~2023-05-26] VITALS: Ht 170.2 cm; Wt 67.2 kg
[~2023-05-26 20:45] MED LIST changes: +DOCU-94 PO; +FER325T PO; +IBUP-1455 PO; +PROM25TA10 PO; -PROM25TA5 PO
[2023-05-26 20:53] VITALS: BP 112/60; PULSE 75; RESP 16; O2SAT 98
== END 2023-05-27 00:39 | disposition left against medical advice (07) ==
LOC: ER 20:45
DX: M25.551 Pain in right hip (principal); Z53.21 Procedure and treatment not carried out due to patient leaving prior to being seen by health care provider

== ENCOUNTER 2023-06-26 11:59 | Emergency (ER) | payer MEDICAID ==
[~2023-06-26] VITALS: Ht 170.2 cm; Wt 63.6 kg
[2023-06-26 12:32] VITALS: BP 131/74; PULSE 101; RESP 18; TEMP 98.2; O2SAT 99
[2023-06-26] MEDS ORDERED: METH-1181 PO (13:46)
[2023-06-26] MEDS ORDERED: IBUP-1454 PO (13:46)
== END 2023-06-26 13:51 | disposition home or self-care (01) ==
LOC: ER 11:59
DX: S29.012A Strain of muscle and tendon of back wall of thorax, initial encounter (principal); R07.89 Other chest pain; Z79.1 Long term (current) use of non-steroidal anti-inflammatories (NSAID); Z79.899 Other long term (current) drug therapy; X58.XXXA Exposure to other specified factors, initial encounter; Y93.89 Activity, other specified; Y92.89 Other specified places as the place of occurrence of the external cause; Y99.8 Other external cause status
CPT/HCPCS: 71046

== ENCOUNTER 2024-10-10 22:34 | Emergency (ER) | payer SELFPAY ==
[~2024-10-10] VITALS: Ht 167.6 cm; Wt 74.1 kg
[~2024-10-10 22:34] MED LIST changes: +IBUP-1454 PO; +METH-1181 PO
[2024-10-10 22:41] VITALS: BP 114/70; PULSE 78; RESP 16; O2SAT 100
== END 2024-10-11 02:01 | disposition left against medical advice (07) ==
LOC: ER 22:34
DX: M79.661 Pain in right lower leg (principal); M25.551 Pain in right hip; Z53.21 Procedure and treatment not carried out due to patient leaving prior to being seen by health care provider

== ENCOUNTER 2025-02-07 22:37 | Emergency (ER) | payer SELFPAY | END 2025-02-08 00:24 | disposition left against medical advice (07) | LOC: ER 22:37 | DX: M79.602 Pain in left arm (principal); Z53.21 Procedure and treatment not carried out due to patient leaving prior to being seen by health care provider ==